=== PATIENT | female | born 1995 | race African-American/Black ===

== ENCOUNTER 2018-12-30 18:55 | Inpatient (IN) ==
[2018-12-30 19:34] LABS: Apearance,Urine CLEAR (Clear); Bilirubin,Urine Negative (Negative); Blood, Urine Negative (Negative); Glucose,Urine (UA) Negative (Negative); Ketones,Urine Negative (Negative); Mucus,Urine Occasional /LPF (Occasional); Nitrite,Urine Negative (Negative); Protein,Urine Negative; RBC,Urine 1 /HPF (0-4); Squamous Epithelial Cell,Urine Occasional /HPF (0-10); Urine Color Yellow (Yellow); Urine Specific Gravity 1.023 (1.001-1.035); WBC,Urine 1 /HPF (0-6)
[2018-12-30] MEDS ORDERED: ONDANSETRON 4 MG/2 ML VIAL IV PRN (20:18)
[2018-12-30] MEDS ORDERED: ceFAZolin 2,000 MG in PREMIX 1 EACH IV ONE (20:21)
[2018-12-30] MEDS ORDERED: CITRIC ACID/SODIUM CITRATE 30 ML UDCUP PO ONE (20:21)
[2018-12-30] MEDS ORDERED: FAMOTIDINE 20 MG/2 ML VIAL IV ONE (20:21)
[2018-12-30 20:46] LABS: Basophils % 0.2 % (0.0-0.8); Eosinophils # 0.1 10*3/uL (0.0-0.87); Eosinophils % 1.4 % (0.00-10.9); Hematocrit 28.4 VOL% (35.7-47.0); Hemoglobin 9.5 GM/DL (12.0-16.0); Immature Granulocytes % 0.9 %; Immature Granulocytes Absolute 0.06 #; Lymphocytes # 1.6 10*3/uL (1.4-4.0); Mean Corpuscular HGB Conc 33.5 GM/DL (32-36); Mean Corpuscular Hemoglobin 27 PG (27-34); Mean Corpuscular Volume 81.8 FL (87-102); Mean Platelet Volume 11.1 FL (9.6-12.0); Monocytes # 0.6 10*3/uL (0.11-0.8); Monocytes % 8.8 % (1.7-12.7); Neutrophils # 4.1 10*3/uL (1.4-7.4); Neutrophils % 63.7 % (38.7-73.9); Platelet Count 170 T/CUMM (130-400); Red Blood Count 3.47 MC/CUMM (3.8-5.5); Red Cell Distribution Width 12.9 % (9.3-17.3); White Blood Count 6.5 T/CUMM (4-12)
[2018-12-30] MEDS ORDERED: OXYTOCIN/LR 30 UNIT/1,000 ML BAG IV ONE (21:03)
[2018-12-30] MEDS ORDERED: METHYLERGONOVINE 0.2 MG/1 ML AMP ONE (21:28)
[2018-12-30] MEDS ORDERED: miSOPROStol 200 MCG TABLET ONE (21:28)
[2018-12-30] MEDS ORDERED: CARBOPROST TROMETHAMINE 250 MCG/ML AMP IM ONE (21:28)
[2018-12-30 23:03] LABS: Cord Arterial Blood HCO3 20.1 MMOL/L; Cord Venous Blood HCO3 22.9 MMOL/L; Cord Venous Blood PCO2 40.4 MMHG; Cord Venous Blood PO2 26.2 MMHG
[2018-12-30] MEDS ORDERED: OXYTOCIN/LR 20 UNIT/1,000 ML BAG IV ONE (23:13)
[2018-12-30] MEDS ORDERED: diphenhydrAMINE 50 MG/1 ML VIAL ONE (23:14)
[2018-12-30] MEDS ORDERED: PHENYLEPHRINE 1 MG/10 ML SYRINGE IV ONE (23:14)
[2018-12-30] MEDS ORDERED: fentaNYL 100 MCG/2 ML VIAL ONE (23:15)
[2018-12-30] MEDS ORDERED: MORPHINE 10 MG/10 ML VIAL ONE (23:15)
[2018-12-30] MEDS ORDERED: MIDAZOLAM 2 MG/2 ML VIAL ONE (23:15)
[2018-12-30] MEDS: LACTATED RINGERS 1,000 ML IV SCH ×2 (23:28→23:29)
[2018-12-31] MEDS ORDERED: SIMETHICONE CHEW 80 MG TABLET PO PRN (03:07)
[2018-12-31] MEDS ORDERED: ACETAMINOPHEN 325 MG TABLET PO PRN (03:07)
[2018-12-31] MEDS ORDERED: RHO(D) IMMUNE GLOBULIN 300 MCG SYRINGE IM ONE (03:07)
[2018-12-31] MEDS ORDERED: diphenhydrAMINE 50 MG/1 ML VIAL ONE (03:46)
[2018-12-31] MEDS ORDERED: diphenhydrAMINE 50 MG/1 ML VIAL IV PRN (04:00)
[2018-12-31 04:09] LABS: Basophils % 0.1 % (0.0-0.8); Eosinophils # 0.1 10*3/uL (0.0-0.87); Eosinophils % 0.9 % (0.00-10.9); Hematocrit 28.6 VOL% (35.7-47.0); Hemoglobin 9.5 GM/DL (12.0-16.0); Immature Granulocytes % 0.4 %; Immature Granulocytes Absolute 0.04 #; Lymphocytes # 1.7 10*3/uL (1.4-4.0); Lymphocytes % 19.2 % (21.3-54.2); Mean Corpuscular HGB Conc 33.2 GM/DL (32-36); Mean Corpuscular Hemoglobin 27 PG (27-34); Mean Corpuscular Volume 82.2 FL (87-102); Mean Platelet Volume 10.7 FL (9.6-12.0); Monocytes # 0.6 10*3/uL (0.11-0.8); Monocytes % 6.9 % (1.7-12.7); Neutrophils # 6.5 10*3/uL (1.4-7.4); Neutrophils % 72.5 % (38.7-73.9); Platelet Count 159 T/CUMM (130-400); Red Blood Count 3.48 MC/CUMM (3.8-5.5); Red Cell Distribution Width 13.1 % (9.3-17.3); White Blood Count 8.9 T/CUMM (4-12)
[2018-12-31] MEDS: ceFAZolin 1,000 MG in SYRINGE 1 EACH IV SCH ×2 (06:15→14:16)
[2018-12-31 06:18] LABS: Apearance,Urine Clear (Clear); Urine Color Yellow (Yellow)
[2018-12-31 06:19] LABS: Bacteria,Urine Occasional /HPF (Few); Bilirubin,Urine Negative (Negative); Blood, Urine Negative (Negative); Glucose,Urine (UA) Negative (Negative); Ketones,Urine Negative (Negative); Nitrite,Urine Negative (Negative); Protein,Urine Negative; RBC,Urine 1 /HPF (0-4); Squamous Epithelial Cell,Urine Occasional /HPF (0-10); Urine Specific Gravity 1.013 (1.001-1.035); WBC,Urine 11 /HPF (0-6)
[2018-12-31 06:20] LABS: Mucus,Urine Occasional /LPF (Occasional)
[2018-12-31] MEDS: LACTATED RINGERS 1,000 ML IV SCH (07:40)
[2018-12-31] MEDS: MULTIVITAMIN (PRENATAL) TABLET PO SCH (10:04)
[2018-12-31] MEDS: KETOROLAC 30 MG/1 ML VIAL IV SCH ×3 (10:04→21:56)
[2018-12-31] MEDS: DOCUSATE SODIUM 100 MG CAPSULE PO SCH ×2 (10:04→21:35)
[2018-12-31] MEDS ORDERED: IBUPROFEN 800 MG TABLET PO PRN (14:58)
[2018-12-31] MEDS ORDERED: IBUPROFEN 800 MG TABLET PO SCH (23:00)
[2019-01-01] MEDS: MULTIVITAMIN (PRENATAL) TABLET PO SCH (09:08)
[2019-01-01] MEDS: DOCUSATE SODIUM 100 MG CAPSULE PO SCH ×2 (09:09→21:44)
[2019-01-01] MEDS: MAGNESIUM HYDROXIDE SUSP 30 ML UDCUP PO PRN ×2 (09:10→21:44)
[2019-01-02 07:17] VITALS: BP 109/56
[2019-01-02] MEDS: MAGNESIUM HYDROXIDE SUSP 30 ML UDCUP PO PRN (08:41)
[2019-01-02] MEDS: DOCUSATE SODIUM 100 MG CAPSULE PO SCH (08:41)
[2019-01-02] MEDS: MULTIVITAMIN (PRENATAL) TABLET PO SCH (08:41)
== END 2019-01-02 14:30 | disposition home or self-care (01) | DRG 540 ==
LOC: N.LDOUT 18:55 → N.LD 18:57 → N.OB 01-01 07:23
PROVIDERS: ADMIT Obstetrics & Gynecology; ATTEND Obstetrics & Gynecology
PROC: LDCSECT (ICD-10-PCS; 2018-12-30 22:00)